=== PATIENT | female | born 1945 | race Caucasian/White ===

== ENCOUNTER → 2023-10-26 15:41 | Outpatient (REF) | payer MEDICARE, OTHER, SELFPAY ==
[2023-10-26 16:27] LABS: % Basophils 1.7 % (0-2); % Eosinophils 1.2 % (0-6); % Immature Granulocytes 0.3 % (0-0.5); % Lymphocytes 25.4 % (20.5-51.1); % Monocytes 11.1 % (1.7-9.3); % Neutrophils 60.3 % (42.2-75.2); Absolute Basophils 0.1 10^3/uL (0-0.2); Absolute Eosinophils 0.1 10^3/uL (0-0.7); Absolute Lymphocytes 1.5 10^3/uL (1.2-3.4); Absolute Monocytes 0.6 10^3/uL (0.1-0.6); Absolute Neutrophils 3.5 10^3/uL (1.4-6.5); Hematocrit 37.9 % (37.0-47.0); Hemoglobin 13.1 g/dL (12.0-16.0); Mean Corp Hgb Conc. 34.6 g/dL (33.0-37.0); Mean Corpuscular Hgb 29.9 pg (27.0-31.0); Mean Corpuscular Volume 86.5 fL (81.0-99.0); Mean Platelet Volume 11.4 fL (7.4-10.4); Nucleated Red Blood Cells % 0 %; Platelet Count 186 10^3/uL (130-400); Red Blood Cell Count 4.38 10^6/uL (4.20-5.40); Red Cell Dist. Width 14.3 % (11.5-14.5); White Blood Cell Count 5.8 10^3/uL (4.8-10.8)
[2023-10-26 16:52] LABS: ALT (SGPT) 18 U/L (0-35); AST (SGOT) 22 U/L (14-36); Albumin 4.4 g/dl (3.5-5.0); Alkaline Phosphatase 96 U/L (38-126); Blood Urea Nitrogen 17 mg/dl (7-17); Calcium 10.3 mg/dl (8.4-10.2); Carbon Dioxide 26 mmol/L (22-30); Chloride 100 mmol/L (98-107); Glucose 93 mg/dl (70-99); HDL Cholesterol 93 mg/dl; LDL Cholesterol, Calculated 113 mg/dl; Potassium 3.8 mmol/L (3.5-5.1); Sodium 136 mmol/L (135-145); Total Bilirubin 0.6 mg/dl (0.2-1.3); Total Cholesterol 227 mg/dl (50-199); Total Protein 7.2 g/dl (6.3-8.2); Triglyceride 108 mg/dl (10-149); Very Low Density Lipoprotein 21 mg/dl (0-30); eGFR > 60.00
== END ==
LOC: REG 15:41
PROVIDERS: ATTENDING PHYSICIAN Family Medicine
DX: I10 Essential (primary) hypertension (principal); Z13.220 Encounter for screening for lipoid disorders; Z13.0 Encounter for screening for diseases of the blood and blood-forming organs and certain disorders involving the immune mechanism
CPT/HCPCS: 36415; 80053; 80061; 85025

== ENCOUNTER → 2023-11-29 10:27 | Outpatient (REF) | payer MEDICARE, OTHER, SELFPAY | LOC: RCS 10:27 | PROVIDERS: ATTENDING PHYSICIAN Internal Medicine Cardiovascular Disease; FAMILY PHYSICIAN Family Medicine | DX: I48.0 Paroxysmal atrial fibrillation (principal) | CPT/HCPCS: 93306 ==

== ENCOUNTER 2024-01-08 12:27 | Emergency (ER) | payer MEDICARE, OTHER, SELFPAY ==
[2024-01-08 12:35] VITALS: BP 111/73
[2024-01-08 12:53] LABS: % Basophils 0.8 % (0-2); % Immature Granulocytes 0.4 % (0-0.5); % Lymphocytes 11.1 % (20.5-51.1); % Monocytes 14.8 % (1.7-9.3); % Neutrophils 72.9 % (42.2-75.2); Absolute Lymphocytes 0.6 10^3/uL (1.2-3.4); Absolute Monocytes 0.8 10^3/uL (0.1-0.6); Absolute Neutrophils 3.7 10^3/uL (1.4-6.5); Hematocrit 37.4 % (37.0-47.0); Hemoglobin 13.3 g/dL (12.0-16.0); Mean Corp Hgb Conc. 35.6 g/dL (33.0-37.0); Mean Corpuscular Hgb 29.6 pg (27.0-31.0); Mean Corpuscular Volume 83.1 fL (81.0-99.0); Mean Platelet Volume 11.9 fL (7.4-10.4); Nucleated Red Blood Cells % 0 %; Platelet Count 109 10^3/uL (130-400); Red Cell Dist. Width 13.2 % (11.5-14.5); White Blood Cell Count 5.1 10^3/uL (4.8-10.8)
[2024-01-08 13:15] LABS: ALT (SGPT) 65 U/L (0-35); AST (SGOT) 48 U/L (14-36); Albumin 3.9 g/dl (3.5-5.0); Alkaline Phosphatase 114 U/L (38-126); Blood Urea Nitrogen 20 mg/dl (7-17); Calcium 9.9 mg/dl (8.4-10.2); Carbon Dioxide 25 mmol/L (22-30); Chloride 97 mmol/L (98-107); Glucose 105 mg/dl (70-99); Potassium 3.6 mmol/L (3.5-5.1); Sodium 132 mmol/L (135-145); Total Bilirubin 0.6 mg/dl (0.2-1.3); Total Protein 6.6 g/dl (6.3-8.2); eGFR 57.31
--- NOTE | 2024-01-08 15:22 | ED.GENMED ---
History of Present Illness
General
Chief Complaint: Fever
Source: patient
Time Seen by Provider: 01/08/24 15:03
History of Present Illness
History of Present Illness:
78yoF with a history of atrial tachycardia presenting with her for evaluation of diarrhea. Symptoms initially began 5 days ago. Symptoms started the day after eating lasagna at a restaurant. She reports 6 episodes of diarrhea yesterday.
She has had 1 bowel movement so far today. She is also experiencing fevers over the past few days with a Tmax of 103.4. Patient also reports malaise, decreased appetite, and headache. She denies any recent travel, sick contacts, or recent
antibiotics. Patient was sent to the ED by her family doctor for evaluation.
Past History
Past History
ED Past Medical History: Arrthythmia (Atrial fibrillation), CAD, HTN, Hypercholesterolemia and Other (Benign ventricular tachycardia.)
ED Past Surgical History: Other (Noncontributory)
Social History
Tobacco: Non-smoker
Alcohol: Occasional
Drug: None
Personal:
Living: with family
Employment: Employed
Family History
Family History: Negative Early CAD or CAD
Phy Exam
Physical Exam
Physical Exam:
Abdomen soft, nondistended. Mild tenderness in the left lower quadrant. No guarding, rigidity, or rebound.
General Physical Exam
General Presentation: well appearing and no apparent distress
General Skin: warm and dry
General Habitus: normal
Cardiovascular Exam
Cardiovascular Exam: regular rate/rhythm
Pulmonary Exam
Pulmonary Exam: lungs clear, no respiratory distress, no crackles and no wheezing
Gastrointestinal Exam
Gastrointestinal Exam: soft and non distended
Palpation: left lower quadrant: Mild tenderness
Course
Orders/Labs/Results
Orders:
Orders
01/08/24 12:44
Complete Blood Count/With Diff Urgent
Comprehensive Metabolic Panel Urgent
Hepatitis A IgM Antibody Urgent
Magnesium Urgent
Comment: MAG ADDED ON BY FLOOR 3:30PM 01-08-24
01/08/24 15:21
0.9% Sodium Chloride 1000 ml [Nss] 1,000 ml IV BOLUS
01/08/24 15:22
CT Abd/pelvis W Iv Cont Urgent
Comment:
Reason For Exam: LLQ pain, diarrhea, fevers
01/08/24 15:25
Add On- LAB Urgent
Tests Added?: magnesium
01/08/24 15:27
Add On- LAB Urgent
Tests Added?: Hepatitis profile
Abnormal Lab Results
01/08/24
12:44
Plt Count 109 L 10^3/uL
(130-400)
MPV 11.9 H fL
(7.4-10.4)
Absolute Lymphs (auto) 0.6 L 10^3/uL
(1.2-3.4)
Absolute Monos (auto) 0.8 H 10^3/uL
(0.1-0.6)
Lymphocytes % 11.1 L %
(20.5-51.1)
Monocytes % 14.8 H %
(1.7-9.3)
Sodium 132 L mmol/L
(135-145)
Chloride 97 L mmol/L
(98-107)
BUN 20 H mg/dl
(7-17)
Glucose 105 H mg/dl
(70-99)
AST 48 H U/L
(14-36)
ALT 65 H U/L
(0-35)
01/08/24 12:44
01/08/24 12:44
Vital Signs
Initial and Last Documented VS:
Initial Vital Signs
Temp Pulse Resp BP Pulse Ox
98.7 F 103 14 111/73 96
01/08/24 12:35 01/08/24 12:35 01/08/24 12:35 01/08/24 12:35 01/08/24 12:35
Last Documented Vital Signs
Temp Pulse Resp BP Pulse Ox
98.7 F 105 18 123/73 97
01/08/24 12:35 01/08/24 18:29 01/08/24 18:29 01/08/24 16:00 01/08/24 18:26
MDM/Problems Addressed
Differential Diagnosis Includes:
78yoF here with diarrhea x 5 days. Associated with fevers, decreased appetite, and malaise. Started after eating at a restaurant. Patient is well-appearing in no acute distress. She is afebrile and hemodynamically stable. No signs of peritonitis
on abdominal exam. Differential diagnosis includes but is not limited to: Viral gastroenteritis, bacterial gastroenteritis, colitis, diverticulitis, dehydration, electrolyte abnormality
Initial ED plan: Check abdominal labs, magnesium, stool culture, and CT abdomen. IV fluid bolus.
*Critical Care Note
Total Time (30-74mins, 75-104mins- exclusive of procedures): Not Applicable
Update Note
Update Note:
White count is normal. Mild thrombocytopenia and transaminitis present. CT abdomen is negative for acute findings. Specifically, there is no evidence of diverticulitis or colitis. Patient has not had any bowel movements during ED stay and she
remains clinically well. No indication for admission. Suspect symptoms may be viral. Hepatitis A testing added for completeness. Script for outpatient stool testing provided. Supportive care discussed including hydration and bland diet. Advise
follow-up with PCP and ED return precautions discussed. Patient discharged in stable condition.
ED Attending Note
-
Portions of this chart may have been created with voice recognition software.� Occasional wrong word or��sound alike� substitutions may have occurred due to the inherent limitations of voice recognition software.
Discharge Plan
Departure
Patient Disposition: Home (Routine Discharge)
Date of Disposition: 01/08/24
Time of Disposition: 18:17
Patient with high blood pressure during this ER visit?: No
Discharge Problem:
Acute diarrhea
Instructions: Acute Diarrhea
Prescriptions:
No Action
losartan 50 MG tablet
50 mg PO BID
Eliquis 5 MG tablet
5 mg PO BID
multivitamin Tablet
1 tab PO DAILY
Cranberry Concentrate
2 - 3 tab PO DAILY
acetaminophen [Tylenol] 325 mg Tablet
325 mg PO BIDPRN PRN (Reason: mild pain/fever)
diltiazem HCl [DILT-XR] 240 mg capsule,ext.rel 24h degradable
240 mg PO BID
potassium chloride 20 mEq tablet,ER particles/crystals
20 meq PO DAILY
hydrochlorothiazide 25 mg tablet
12.5 mg PO DAILY
Systane (PF) 0.4-0.3 % Dropperette
2 drp RIGHT EYE BIDPRN PRN (Reason: eye irritation)
cholecalciferol (vitamin D3) 50 mcg (2,000 unit) Tablet
50 mcg PO HS
PreserVision AREDS-2 250-90-40-1 mg Capsule
1 cap PO BID
Referrals:
Jose Alberto Curry MD [Family Provider] -
Activity Restrictions/Additional Instructions:
Drink plenty of fluids and rest. Eat a bland diet (rice, applesauce, toast, bananas).
Collect your stool and bring the sample to the outpatient lab for testing.
Please follow-up with your family doctor. Return to the ER with any worsening symptoms.
Interventions
Interventions:
*Risk Screen - Suicide Last Done: 01/08/24 15:39
*General Assessment Last Done: 01/08/24 12:35
*Neglect/Abuse Screening Last Done: 01/08/24 15:39
ED- Fall Risk Assessment Last Done: 01/08/24 15:40
*ED COVID-19 Vaccine History Last Done: 01/08/24 12:35
*Nursing Disposition Last Done: 01/08/24 18:30
ED- Neurological Assessment Last Done: 01/08/24 15:40
ED-Skin Assessment Last Done: 01/08/24 15:40
Discharge Date and Time
Discharge Date/Time: 01/08/24 18:30
Print Language: CROATIAN
[2024-01-08 15:34] VITALS: BP 134/97
[2024-01-08] MEDS: NSS 1000 IV (15:39)
[2024-01-08 15:41] VITALS: BMI 27.3
[2024-01-08 15:57] LABS: Magnesium 2.3 mg/dl (1.6-2.3)
[2024-01-08 16:00] VITALS: BP 123/73
[2024-01-08 19:00] LABS: Hepatitis A IgM Antibody Negative (Negative)
== END 2024-01-08 18:30 | disposition home or self-care (01) ==
LOC: EMR 12:27
PROVIDERS: Emergency Medicine; EMERGENCY PHYSICIAN Student in an Organized Health Care Education/Training Program; FAMILY PHYSICIAN Family Medicine
DX: R19.7 Diarrhea, unspecified (principal); R50.9 Fever, unspecified; R10.32 Left lower quadrant pain; R53.81 Other malaise; I47.19 Other supraventricular tachycardia; R51.9 Headache, unspecified; I25.10 Atherosclerotic heart disease of native coronary artery without angina pectoris; I10 Essential (primary) hypertension; E78.00 Pure hypercholesterolemia, unspecified; I48.91 Unspecified atrial fibrillation; Z79.01 Long term (current) use of anticoagulants; Z88.8 Allergy status to other drugs, medicaments and biological substances; Z88.1 Allergy status to other antibiotic agents; Z91.040 Latex allergy status
CPT/HCPCS: 99285; 96360; 74177; 80053; 83735; 85025; 86709; 99284; Q9967

== ENCOUNTER → 2024-01-18 10:53 | Outpatient (REF) | payer MEDICARE, OTHER, SELFPAY ==
[2024-01-18 12:18] LABS: Blood Urea Nitrogen 17 mg/dl (7-17); Calcium 9.9 mg/dl (8.4-10.2); Carbon Dioxide 27 mmol/L (22-30); Chloride 102 mmol/L (98-107); Glucose 94 mg/dl (70-99); Potassium 4.1 mmol/L (3.5-5.1); Sodium 138 mmol/L (135-145); eGFR 57.31
== END ==
LOC: REG 10:53
PROVIDERS: ATTENDING PHYSICIAN Physician Assistant; FAMILY PHYSICIAN Family Medicine
DX: E87.1 Hypo-osmolality and hyponatremia (principal); E87.6 Hypokalemia
CPT/HCPCS: 36415; 80048

== ENCOUNTER → 2024-02-14 15:04 | Outpatient (REF) | payer MEDICARE, OTHER, SELFPAY ==
[2024-02-14 17:05] LABS: ALT (SGPT) 23 U/L (0-35); AST (SGOT) 26 U/L (14-36); Albumin 4.3 g/dl (3.5-5.0); Alkaline Phosphatase 102 U/L (38-126); Blood Urea Nitrogen 14 mg/dl (7-17); Calcium 10.1 mg/dl (8.4-10.2); Carbon Dioxide 28 mmol/L (22-30); Chloride 103 mmol/L (98-107); Glucose 99 mg/dl (70-99); Sodium 137 mmol/L (135-145); Total Bilirubin 0.4 mg/dl (0.2-1.3); Total Protein 6.8 g/dl (6.3-8.2); eGFR > 60.00
== END ==
LOC: REG 15:04
PROVIDERS: ATTENDING PHYSICIAN Family Medicine
DX: E87.6 Hypokalemia (principal)
CPT/HCPCS: 36415; 80053

== ENCOUNTER → 2024-03-19 06:26 | Day surgery (SDC) | payer MEDICARE, OTHER, SELFPAY | LOC: GI 06:26 | PROVIDERS: ATTENDING PHYSICIAN Internal Medicine Gastroenterology | DX: D12.0 Benign neoplasm of cecum (principal); K57.30 Diverticulosis of large intestine without perforation or abscess without bleeding; D12.2 Benign neoplasm of ascending colon; D12.3 Benign neoplasm of transverse colon; Z86.010 Personal history of colon polyps; Z80.0 Family history of malignant neoplasm of digestive organs; K63.5 Polyp of colon | CPT/HCPCS: 45385; 88305 ==

== ENCOUNTER → 2024-05-21 15:23 | Outpatient (REF) | payer MEDICARE, OTHER, SELFPAY ==
[2024-05-21 16:54] LABS: Blood Urea Nitrogen 20 mg/dl (7-17); Calcium 10.3 mg/dl (8.4-10.2); Carbon Dioxide 28 mmol/L (22-30); Chloride 99 mmol/L (98-107); Glucose 87 mg/dl (70-99); Potassium 3.9 mmol/L (3.5-5.1); Sodium 139 mmol/L (135-145); eGFR 56.95
== END ==
LOC: REG 15:23
PROVIDERS: ATTENDING PHYSICIAN Family Medicine; OTHER PHYSICIAN Internal Medicine Cardiovascular Disease
DX: I10 Essential (primary) hypertension (principal); I48.0 Paroxysmal atrial fibrillation
CPT/HCPCS: 36415; 80048

== ENCOUNTER → 2025-06-03 18:32 | Outpatient (REF) | payer MEDICARE, OTHER, SELFPAY | LOC: RAD 18:32 | PROVIDERS: ATTENDING PHYSICIAN Physician Assistant | DX: M25.572 Pain in left ankle and joints of left foot (principal); M79.672 Pain in left foot | CPT/HCPCS: 73610; 73630 ==

== ENCOUNTER 2025-06-08 09:10 | Emergency (ER) | payer MEDICARE, OTHER, SELFPAY ==
[2025-06-08 09:23] VITALS: BP 152/88
[2025-06-08 10:47] VITALS: BP 149/90
[2025-06-08 11:00] VITALS: BP 143/82
[2025-06-08 11:01] VITALS: BMI 27.1
[2025-06-08 11:20] LABS: Hematocrit 39.0 % (37.0-47.0); Hemoglobin 13.6 g/dL (12.0-16.0); Mean Corp Hgb Conc. 34.9 g/dL (33.0-37.0); Mean Corpuscular Volume 85.7 fL (81.0-99.0); Nucleated Red Blood Cells % 0 %; Platelet Count 184 10^3/uL (130-400); Red Cell Dist. Width 13.5 % (11.5-14.5)
--- NOTE | 2025-06-08 11:21 | ED.GENMED ---
History of Present Illness
General
Chief Complaint: Chest Pain
Source: patient
Exam Limitations: none
Time Seen by Provider: 06/08/25 10:40
Nursing documentation reviewed up to this point in time: agreed with
History of Present Illness
History of Present Illness:
The patient is an 80-year-old female who reports that when she woke up at 1:25 AM this morning to use the bathroom, she noted a sharp right-sided chest pain. Patient reports chills but no fever. Patient reports occasional cough. Patient denies
shortness of breath. She denies a history of PE and DVT. She denies leg pain and leg swelling.
Past History
Past History
ED Past Medical History: Arrthythmia (Atrial fibrillation), CAD, HTN, Hypercholesterolemia and Other (Benign ventricular tachycardia.)
ED Past Surgical History: Other (Noncontributory)
Social History
Tobacco: Non-smoker
Alcohol: Occasional
Drug: None
Personal:
Living: with family
Employment: Employed
Family History
Family History: Negative Early CAD
Review of Systems
Review of Systems
Allergies reviewed?: Yes
All Other Systems: ROS reviewed and negative except as documented in HPI and ROS
Constitutional: Reports fatigue and chills
EENT: Reports no symptoms
Respiratory: Reports no symptoms
Cardiac: Reports chest pain
ABD/GI: Reports no symptoms
: Reports no symptoms
Musculoskeletal: Reports no symptoms
Skin: Reports no symptoms
Neurological: Reports no symptoms
Endocrine: Reports no symptoms
Hematologic/Lymphatic: Reports no symptoms
Psychiatric: Reports no symptoms
Phy Exam
Physical Exam
Physical Exam:
Physical Exam
General: no apparent distress, not acutely ill, well-appearing
Neck: supple. no meningeal signs. normal psoterior pharynx
Heart: s1/s2 regular rate and rhythm, no murmur. equal radial pulses.
Lungs: no acute respiratory distress. clear bilaterally
Abdomen: normal bowel sounds. not tender. no CVAT
Neuro: alert and oriented. no focal neurological deficits
Skin: no rash
Psychiatric: well kept. interactive and cooperative
Extremities: no edema. no calf tenderness. negative homans. good distal pulses
Scores
Heart Score for Chest Pain Patients
STEMI patient?: Not applicable
Course
Orders/Labs/Results
Orders:
Orders
06/08/25 09:13
Electrocardiogram (*1) Urgent
Reason for Study: Chest Pain
EKG- Treatment ONCE
06/08/25 11:14
Complete Blood Count/With Diff Urgent
Comprehensive Metabolic Panel Urgent
Troponin I Urgent
06/08/25 11:29
COVID-19 Antigen Urgent
Source: Nasal Swab
D-Dimer Urgent
Influenza A+B Rapid Molecular Urgent
DOMINICK Source: Nasal Swab
Specimen Description:
06/08/25 12:13
CR Chest - 2 Views Urgent
Comment:
Reason For Exam: R sided CP
Abnormal Lab Results
06/08/25
11:14
MPV 10.9 H fL
(7.4-10.4)
Absolute Lymphs (auto) 0.8 L 10^3/uL
(1.2-3.4)
Neutrophils % 78.1 H %
(42.2-75.2)
Lymphocytes % 11.5 L %
(20.5-51.1)
Glucose 109 H mg/dl
(70-99)
06/08/25 11:14
06/08/25 11:14
Vital Signs
Initial and Last Documented VS:
Initial Vital Signs
Temp Pulse Resp BP Pulse Ox
98.2 F 91 18 152/88 99
06/08/25 09:23 06/08/25 09:23 06/08/25 09:23 06/08/25 09:23 06/08/25 09:23
Last Documented Vital Signs
Temp Pulse Resp BP Pulse Ox
98.2 F 91 40 143/82 97
06/08/25 09:23 06/08/25 12:00 06/08/25 12:00 06/08/25 11:00 06/08/25 11:30
MDM/Problems Addressed
Differential Diagnosis Includes:
Acute coronary syndrome, pneumonia, PE
MDM/Problems Addressed:
Patient presents with acute right-sided chest pain
Chronic conditions affecting care: Arrhythmia
Acute Exacerbation and/or Progression of Chronic Illness:
Patient's A-fib is under control. She is in a normal sinus rhythm
*Radiology
Radiology exam reviewed: preliminary read by ED provider (Chest x-ray reviewed by me. No acute disease)
*Pulse Oximetry
SaO2: 100
Oxygen Mode of Delivery: Room air
Patient hypoxic: no
*EKG
Interpreted by ED Provider?: Yes
Interpretation: abnormal
Comparison EKG: no changes
Rate: normal
Rhythm: sinus and PAC's
[place]: normal axis
Interval: normal interval
QRS Pattern: normal QRS
Ischemia: non-specific ST changes
*Darklight Inspector Interpretation
Rate: normal
Interpretation: normal
Rhythm: sinus
*Critical Care Note
Total Time (30-74mins, 75-104mins- exclusive of procedures): Not Applicable
Update Note
Update Note:
12:45 PM patient continues to look well and comfortable. She is smiling and conversational. Chest x-ray appears clear. D-dimer is negative and is doubtful she has a PE given that she is on blood thinners.
ED Attending Note
-
Portions of this chart may have been created with voice recognition software.� Occasional wrong word or��sound alike� substitutions may have occurred due to the inherent limitations of voice recognition software.
Discharge Plan
Departure
Patient Disposition: Home (Routine Discharge)
Date of Disposition: 06/08/25
Time of Disposition: 12:45
Patient with high blood pressure during this ER visit?: Yes
Condition: Good
Covid-19: Not Applicable
Discharge Problem:
Right-sided chest pain
Instructions: Chest Pain PCP Follow Up, BLOOD PRESSURE
Prescriptions:
No Action
losartan 50 MG tablet
50 mg PO BID
Eliquis 5 MG tablet
5 mg PO BID
multivitamin Tablet
1 tab PO DAILY
Cranberry Concentrate
2 - 3 tab PO DAILY
acetaminophen [Tylenol] 325 mg Tablet
325 mg PO BIDPRN PRN (Reason: mild pain/fever)
diltiazem HCl [DILT-XR] 240 mg capsule,ext.rel 24h degradable
240 mg PO BID
potassium chloride 20 mEq tablet,ER particles/crystals
20 meq PO DAILY
hydrochlorothiazide 25 mg tablet
12.5 mg PO DAILY
Systane (PF) 0.4-0.3 % Dropperette
2 drp RIGHT EYE BIDPRN PRN (Reason: eye irritation)
cholecalciferol (vitamin D3) 50 mcg (2,000 unit) Tablet
50 mcg PO HS
PreserVision AREDS-2 250-90-40-1 mg Capsule
1 cap PO BID
Referrals:
Jose Alberto Curry MD [Family Provider, Family Practice]
Activity Restrictions/Additional Instructions:
Take 650 mg of Tylenol every 4 hours as needed for chest pain.
Interventions
Interventions:
*Risk Screen - Suicide Last Done: 06/08/25 09:23
*General Assessment Last Done: 06/08/25 09:23
*Neglect/Abuse Screening Last Done: 06/08/25 09:23
*ED COVID-19 Vaccine History Last Done: 06/08/25 11:02
*ED Influenza Vaccine History Last Done: 06/08/25 11:02
ED- Cardiac Assessment Last Done: 06/08/25 11:02
Discharge Date and Time
Print Language: BURKINAN
[2025-06-08 11:37] LABS: ALT (SGPT) 20 U/L (0-35); AST (SGOT) 21 U/L (14-36); Albumin 4.5 g/dl (3.5-5.0); Alkaline Phosphatase 99 U/L (38-126); Blood Urea Nitrogen 14 mg/dl (7-17); Calcium 9.4 mg/dl (8.4-10.2); Carbon Dioxide 28 mmol/L (22-30); Chloride 105 mmol/L (98-107); Estimated Creatinine Clearance 52 ml/min; Glucose 109 mg/dl (70-99); Potassium 3.8 mmol/L (3.5-5.1); Sodium 140 mmol/L (135-145); Total Protein 7.3 g/dl (6.3-8.2); eGFR > 60.00
[2025-06-08 11:43] LABS: Troponin I < 0.012 ng/ml
[2025-06-08 11:53] LABS: COVID-19 Antigen Negative (Negative)
[2025-06-08 12:00] LABS: D-Dimer < 0.27 ug/mlFEU (0.00-0.50)
[2025-06-08 13:02] VITALS: BP 131/65
== END 2025-06-08 13:20 | disposition home or self-care (01) ==
LOC: EMR 09:10
PROVIDERS: EMERGENCY PHYSICIAN Emergency Medicine; FAMILY PHYSICIAN Family Medicine
DX: R07.89 Other chest pain (principal); I48.91 Unspecified atrial fibrillation; I25.10 Atherosclerotic heart disease of native coronary artery without angina pectoris; I10 Essential (primary) hypertension; E78.00 Pure hypercholesterolemia, unspecified; Z79.01 Long term (current) use of anticoagulants
CPT/HCPCS: 99283; 71046; 80053; 84484; 85025; 85379; 87502; 87811; 93005